=== PATIENT | male | born 1955 | race Caucasian/White ===

== ENCOUNTER 2017-09-19 10:11 | Emergency (ER) | payer BC ==
[~2017-09-19] VITALS: Ht 190.5 cm; Wt 98.0 kg
[2017-09-19 10:14] VITALS: BP 151/96
[2017-09-19] MEDS ORDERED: neomy sulf/bacitrac zn/polymixin b oint 14.2 gm tube TP STA (10:35)
[2017-09-19] MEDS ORDERED: NEOM28.37 TOP (10:59)
== END 2017-09-19 11:13 | disposition home or self-care (01) ==
LOC: ER 10:11
DX: T23.201A Burn of second degree of right hand, unspecified site, initial encounter (principal); T23.202A Burn of second degree of left hand, unspecified site, initial encounter; X08.8XXA Exposure to other specified smoke, fire and flames, initial encounter; Y93.89 Activity, other specified; Y92.89 Other specified places as the place of occurrence of the external cause; Y99.8 Other external cause status
CPT/HCPCS: 16020; 99284; A6449